=== PATIENT | male | born 1960 | race Caucasian/White ===

== ENCOUNTER 2016-05-10 13:37 | Inpatient (IN) | payer BC ==
[~2016-05-10] VITALS: Ht 170.2 cm; Wt 75.5 kg
[2016-05-10] MEDS ORDERED: IV NORMAL SALINE 1000ML BAG 1,000 ML IV SCH (14:28)
[2016-05-10 14:42] LABS: BASO # 0.1 x10^3/uL (0.0-0.2); BASO % 1 % (0-3); EOS % 3 % (0-3); HEMATOCRIT 43.4 % (39.0-53.0); HEMOGLOBIN 14.3 g/dL (13.0-17.5); LYMPH # 1.8 x10^3/uL (1.0-4.8); LYMPH % 24 % (24-48); MEAN CORPUSCULAR HEMOGLOBIN 27 pg (25-35); MEAN CORPUSCULAR HGB CONC 33 g/dL (31-37); MEAN CORPUSCULAR VOLUME 83 fL (79-100); MONO % 7 % (0-9); NEUT % 65 % (31-73); PLATELET COUNT 194 x10^3/uL (140-400); RED BLOOD COUNT 5.24 x10^6/uL (4.30-5.70); RED CELL DISTRIBUTION WIDTH 15.7 % (11.5-14.5); WHITE BLOOD COUNT 7.4 x10^3/uL (4.0-11.0)
[2016-05-10 14:51] LABS: INR 2.8 (0.8-1.1); PROTHROMBIN TIME PATIENT 28.1 SEC (11.7-14.0)
--- NOTE | 2016-05-10 15:00 | RAD ---
Exam: AP portable chest. History: Sent from cardiac rehabilitation for tachycardia. Comparison: None. Findings: The heart and mediastinal structures are within normal limits for size. Lungs are without infiltrate. No pneumothorax or pleural effusion is appreciated. Median sternotomy wires are present. Impression: 1. No acute cardiopulmonary process.
[2016-05-10 15:04] LABS: ANION GAP 9 (6-14); BLOOD UREA NITROGEN 10 mg/dL (8-26); CALCIUM 9.3 mg/dL (8.5-10.1); CARBON DIOXIDE 28 mmol/L (21-32); CHLORIDE 104 mmol/L (98-107); CREATININE 1.1 mg/dL (0.7-1.3); GFR 69.8; GLUCOSE 115 mg/dL (70-99); POTASSIUM 4.1 mmol/L (3.5-5.1); SODIUM 141 mmol/L (136-145)
[2016-05-10 15:12] LABS: CKMB INDEX 1.1 % (0-4); CKMB MASS 0.8 ng/mL (0.0-3.6)
--- NOTE | 2016-05-10 15:18 | EKG ---
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
[2016-05-10 15:24] LABS: ALBUMIN 3.9 g/dL (3.4-5.0); ALK PHOS 128 U/L (46-116); ALT (SGPT) 98 U/L (16-63); AST (SGOT) 40 U/L (15-37); DIRECT BILIRUBIN < 0.1 mg/dL (0.0-0.2); TOTAL BILIRUBIN 0.5 mg/dL (0.2-1.0); TOTAL PROTEIN 7.9 g/dL (6.4-8.2)
[2016-05-10] MEDS ORDERED: DILTIAZEM IV PUSH 25 MG/5 ML VIAL. IVP ONE (15:30)
--- NOTE | 2016-05-10 15:44 | EKG ---
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
[2016-05-10] MEDS: DILTIAZEM 125 MG in IV DEXTROSE 5% 100 ML IV PRN (15:56)
--- NOTE | 2016-05-10 15:59 | PHYS DOC ---
Past Medical History Past Medical History: GERD, Heart Disease, Hypertension Past Surgical History: Coronary Bypass Surgery Alcohol Use: None Drug Use: None Adult General Chief Complaint Chief Complaint: RAPID HEART RATE HPI HPI Patient is a 55 year old male sent from cardiac rehabilitation to the ED with the complaint of fast heart rate. Patient tells me that he had a cardiac bypass about 5 weeks ago done at [facility] by Dr. Garvey. His insurance sales producer is Dr. Aragon. After his bypass , about 2 weeks later, he went in and was found to be in A. fib. He was admitted to the hospital at [facility]. I did speak with someone in Dr. Aragon's office who added the following history. The patient was hospitalized at which time he did convert to sinus rhythm. He was changed from amlodipine to Cardizem and he was put on amiodarone 400 mg daily as well as Xarelto during that hospitalization. The patient started cardiac rehabilitation 2 days ago here at [place] because he lives in this area. He did fine. Today he walked into cardiac rehabilitation and when they were doing vitals they found his heart rate to be elevated and they did some rhythm strips and he had apparently a sinus tachycardia, was sent to the ED for evaluation. The patient denies chest pain, denies dyspnea. He said he did feel lightheaded with his previous episode of A. fib but has not felt lightheaded today. He denies any vomiting, denies blood in his stools. He said he has had "horrible diarrhea" since his bypass surgery. 2 days ago, Sunday night, he did have horrible diarrhea, he took a dose of antidiarrheal and yesterday he decreased his by mouth intake hoping to slow his diarrhea. He said he has had a C. difficile test done at the clinic which was negative. He is taking probiotics. 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 PCP none, he does have an appointment coming up with Dr. Lizama at [facility] but he does not currently have a PCP. Anesthesiologist Physician Dr. Aragon at [facility] Med list which came from the chart at Dr. Aragon's office: Cardizem 180 mg daily Toprol 50 mg daily Amiodarone 400 mg daily, started about 3 weeks ago due to new onset A. fib Lipitor Ramipril Aspirin 81 mg Colchicine 0.6 mg daily Xarelto 20 mg daily Review of Systems Review of Systems Constitutional: Denies fever or chills [] Eyes: Denies change in visual acuity, redness, or eye pain [] HENT: Denies nasal congestion or sore throat [] Respiratory: Denies cough or shortness of breath [] Cardiovascular: Denies chest pain or symptomatic arrhythmia GI: Denies abdominal pain, nausea, vomiting, positive as in history of present illness for diarrhea : Denies dysuria or hematuria [] Musculoskeletal: Denies back pain or joint pain [] Integument: Denies rash or skin lesions [] Neurologic: Denies headache, focal weakness or sensory changes [] Current Medications Current Medications Current Medications Medications (Trade) Dose Ordered Sig/Annabelle Start Time Stop Time Status Last Admin Dose Admin Diltiazem HCl 20 mg 20 mg 1X ONCE 05/10/16 15:30 05/10/16 15:31 DC 05/10/16 15:48 20 MG Diltiazem HCl/ Dextrose (Cardizem) 125 ml @ 0 mls/hr CONT PRN 05/10/16 15:45 05/10/16 15:56 5 MLS/HR Sodium Chloride (Iv Sodium Chloride 0.9% 1000ml Bag) 1,000 ml @ 1,000 mls/hr Q1H 05/10/16 14:28 05/10/16 15:27 DC 05/10/16 14:40 1,000 MLS/HR Allergies Allergies Allergies Coded Allergies Type Severity Reaction Last Updated Verified No Known Drug Allergies 05/10/16 No Physical Exam Physical Exam Constitutional: Well developed, well nourished, no acute distress, non-toxic appearance. Alert, mentating normally. HENT: Normocephalic, atraumatic, bilateral external ears normal, nose normal. [ ] Eyes: conjunctiva normal, no discharge. [] Neck: Normal range of motion, no stridor. [] Cardiovascular:Heart regular tachycardia without murmur Lungs & Thorax: Bilateral breath sounds clear to auscultation [] Abdomen: Bowel sounds normal, soft, no tenderness, no masses, no pulsatile masses. [] Skin: Warm, dry, no erythema, no rash. [] Extremities: No tenderness, no cyanosis, no clubbing, ROM intact, no edema. [] Neurologic: Alert and oriented X 3, normal motor function, normal sensory function, no focal deficits noted. [] Current Patient Data Vital Signs Vital Signs Date Time Temp Pulse Resp B/P Pulse Ox O2 Delivery O2 Flow Rate FiO2 05/10/16 15:48 133 138/94 05/10/16 13:56 98.3 22 98 Room Air 98.3 Lab Values Laboratory Tests Test 05/10/16 14:02 White Blood Count 7.4x10^3/uL (4.0-11.0) Red Blood Count 5.24x10^6/uL (4.30-5.70) Hemoglobin 14.3g/dL (13.0-17.5) Hematocrit 43.4% (39.0-53.0) Mean Corpuscular Volume 83fL (79-100) Mean Corpuscular Hemoglobin 27pg (25-35) Mean Corpuscular Hemoglobin Concent 33g/dL (31-37) Red Cell Distribution Width 15.7% (11.5-14.5) H Platelet Count 194x10^3/uL (140-400) Neutrophils (%) (Auto) 65% (31-73) Lymphocytes (%) (Auto) 24% (24-48) Monocytes (%) (Auto) 7% (0-9) Eosinophils (%) (Auto) 3% (0-3) Basophils (%) (Auto) 1% (0-3) Neutrophils # (Auto) 4.8x10^3uL (1.8-7.7) Lymphocytes # (Auto) 1.8x10^3/uL (1.0-4.8) Monocytes # (Auto) 0.5x10^3/uL (0.0-1.1) Eosinophils # (Auto) 0.2x10^3/uL (0.0-0.7) Basophils # (Auto) 0.1x10^3/uL (0.0-0.2) Prothrombin Time 28.1SEC (11.7-14.0) H Prothrombin Time INR 2.8 (0.8-1.1) H D-Dimer (Lisa) 0.52ug/mlFEU (0.00-0.50) H Sodium Level 141mmol/L (136-145) Potassium Level 4.1mmol/L (3.5-5.1) Chloride Level 104mmol/L (98-107) Carbon Dioxide Level 28mmol/L (21-32) Anion Gap 9 (6-14) Blood Urea Nitrogen 10mg/dL (8-26) Creatinine 1.1mg/dL (0.7-1.3) Estimated GFR (Cockcroft-Gault) 69.8 Glucose Level 115mg/dL (70-99) H Calcium Level 9.3mg/dL (8.5-10.1) Magnesium Level 2.0mg/dL (1.8-2.4) Total Bilirubin 0.5mg/dL (0.2-1.0) Direct Bilirubin < 0.1mg/dL (0.0-0.2) Aspartate Amino Transferase (AST) 40U/L (15-37) H Alanine Aminotransferase (ALT) 98U/L (16-63) H Alkaline Phosphatase 128U/L (46-116) H Creatine Kinase 70U/L (39-308) Creatine Kinase MB (Mass) 0.8ng/mL (0.0-3.6) Creatine Kinase MB Relative Index 1.1% (0-4) Troponin I Quantitative < 0.017ng/mL (0.000-0.055) BZ-Aqz-C-Type Natriuretic Peptide 513pg/mL (0-124) H Total Protein 7.9g/dL (6.4-8.2) Albumin 3.9g/dL (3.4-5.0) Thyroid Stimulating Hormone (TSH) 4.106uIU/mL (0.358-3.74) H Laboratory Tests 05/10/16 14:02 Laboratory Tests 05/10/16 14:02 EKG EKG Initial 12-lead EKG read by me. Likely atrial fibrillation. Only slightly irregularly irregular. Heart rate 119. There are no acute ST or T wave changes indicative of ischemia or infarction. No STEMI. 1345 Repeat 12-lead EKG read by me when the patient's heart rate was slightly higher. Atrial fibrillation. Heart rate 127. There are no acute ST or T waves indicative of ischemia or infarction. 1541 [] Radiology/Procedures Radiology/Procedures One view portable chest x-ray read by the radiologist. Heart size normal. Lung cole are clear. No acute cardiopulmonary process. [] Course & Med Decision Making Course & Med Decision Making Pertinent Labs and Imaging studies reviewed. (See chart for details) 55-year-old male with a recent history of CABG and recent history of development of A. fib, although he was back in sinus rhythm as of April 19. Presents with tachycardia. He has been having a lot of diarrhea so I decided first to hydrate him, he was given a liter of normal saline which did not improve his tachycardia at all. No lab finding or other clinical finding as the cause of the tachycardia. Second EKG was more indicative of atrial fibrillation. I started him on Cardizem infusion after a bolus. He'll need to be hospitalized for rapid A. fib. He is already anticoagulated, he has been taking Xarelto daily per his insurance sales producer Dr. Aragon. See history of present illness for patient's meds and discussion of recent medical history per Dr. Aragon's office. I discussed the case with Dr. Whitney, [facility]. She will admit the patient. I wrote bridge orders. Critical care time 40 minutes including bedside evaluation and reevaluation, interpretation of multiple EKGs, discussion of the case with the patient's insurance sales producer office, IV diltiazem management for rate control, documentation, writing orders, discussion with admitting physician. [] Dragon Disclaimer Dragon Disclaimer This electronic medical record was generated, in whole or in part, using a voice recognition dictation system. Departure Departure Impression: Primary Impression: Atrial fibrillation with rapid ventricular response Disposition: ADMITTED INPATIENT Admitting Physician: Serena Whitney Condition: STABLE Referrals: NO PCP (PCP) JOCELYNE MARTINEZ MD May 10, 2016 15:59
--- NOTE | 2016-05-10 17:21 | ACF ---
Admission Forms Criteria TELEMETRY CARE Telemetry Admission Guidelines (Place 'X' for any and all applicable criteria): Admission to telemetry [A] may be indicated for ANY ONE of the following(1)(2)(3 )(4)(5): [X]I. Cardiac disease, including ANY ONE of the following (9)(10)(11)(12)(13 ): [ ]a) Postacute CA [ ]b) Low-risk patients with ST-segment elevation CA who have undergone successful percutaneous coronary intervention [ ]c) Unstable angina [ ]d) Suspected CA (until it is ruled out) [ ]e) Post cardiac surgery (first 48 to 72 hours unless complications occur) [X]f) Acute arrhythmias (including significant tachycardia or bradycardia) [B] [ ]g) Firing of an implantable cardioverter defibrillator [C] [ ]h) Suspected pacemaker or implantable cardioverter defibrillator malfunction (10) [ ]i) New administration or adjustment of an antiarrhythmic drug [D ] [ ]j) Child admitted for acute congestive heart failure [ ]j) Long QT syndrome [ ]k) Advanced heart block (eg, second-degree Mobitz type II, third- degree heart block) [ ]l) Acute myocarditis or pericarditis [ ]m) Short-term (ambulatory or inpatient) monitoring after a cardiac procedure as indicated by ANY ONE of the following [E]: [ ]i) Electrophysiologic studies [ ]ii) Percutaneous coronary intervention with stent placement [ ]iii) Pacemaker placement with cardiac conduction defect [ ]iv) Implantable cardiac defibrillator placement [ ]II. Drug overdose or poisoning with substance that causes arrhythmias or QT prolongation (eg, phenothiazines, sympathomimetic agents, cyclic antidepressants, digitalis, antiarrhythmic drugs)(15) [ ]III. Short-term (ambulatory or inpatient) monitoring after therapeutic or diagnostic procedure requiring conscious sedation or anesthesia (eg, endoscopy, elective cardioversion) [ ]IV. Acute cerebrovascular even[F](18) [ ]V. Massive blood transfusion (eg, at least 10 units of packed red blood cells in 24 hours) [ ]. Variceal bleeding after endoscopy, sclerotherapy, or IV vasopressin [ ]VII. Uncorrected electrolyte abnormalities associated with an increased risk of dangerous arrhythmia [G]; examples include [ ]a) Hyperkalemia with attributable ECG changes [ ]b) Potassium greater than 6.5 mmol/L (mEq/L) in a patient without history of chronic renal disease [ ]c) Prolonged QT attributed to hypokalemia, hypomagnesemia, or hypocalcemia [ ]VIII.Unexplained syncope or other neurologic event suspected of being due to arrhythmia due to a finding that increases risk; examples include(19)(20)(21): [ ]a) High-risk ECG findings (eg, bifascicular block, bradycardia, abnormal QT interval, ventricular pre- excitation) [ ]b) History of previous syncope due to arrhythmia [ ]c) Abnormal ventricular function (eg, reduced ejection fraction ) [ ]d) Exertional or supine syncope [ ]e) Concerning syncope characteristics (eg, sudden loss of consciousness without prodrome) [ ]f) Family history of sudden [ ]g) Use of arrhythmogenic medication [ ]h) Suspected cardiac ischemia [ ]i) Known channelopathy (eg, long QT syndrome, Brugada syndrome, or catecholaminergic paroxysmal ventricular tachycardia) [ ]j) Known structural heart disease (eg, hypertrophic cardiomyopathy , severe valvular disease) [ ]k) Palpitations preceding syncope The original [employer] content created by [employer] has been revised. The portions of the content which have been revised are identified through the use of italic text or in bold, and [employer] has neither reviewed nor approved the modified material. All other unmodified content is copyright [employer]. Please see references footnoted in the original [employer] edition 2016 Admission Criteria Met?: Yes SALUD MONACO May 10, 2016 17:21
--- NOTE | 2016-05-10 17:24 | PDOC1 ---
History and Physical Date of Admission Date of Admission 05/10/16 Identification/Chief Complaint Chief Complaint rapid afib Problems: Source Source: Chart review, Patient History of Present Illness History of Present Illness 55yo M, who recently got CABG, afib, comes for rapid afib. He underwent CABG in [facility] 5 weeks ago, then 2 weeks ago, was found afib. He was given amiodarone , toprol, cardizem and was told converted to sinus. He didnot feel any tachycardia in the past 2-3 weeks. He comes to card rehab here today, was found HR 130s when checking vitals, then sent to ER. He felt mild dizzy, no palpitation. He missed one day of his all meds. He has been having diarrhea since CABG, was told cdiff neg. mild lower abd pain with cramps, no N/V, sob, cough, fever, chills. Past Medical History Cardiovascular: HTN, SD Past Surgical History Past Surgical History: CABG Family History Family History: Coronary Artery Disease Social History Smoke: No ALCOHOL: none Drugs: None Current Problem List Problem List Problems Medical Problems: (1) Atrial fibrillation with rapid ventricular response Status: Acute Current Medications Current Medications Current Medications Medications (Trade) Dose Ordered Sig/Annabelle Start Time Stop Time Status Last Admin Dose Admin Diltiazem HCl 20 mg 20 mg 1X ONCE 05/10/16 15:30 05/10/16 15:31 DC 05/10/16 15:48 20 MG Diltiazem HCl/ Dextrose (Cardizem) 125 ml @ 0 mls/hr CONT PRN 05/10/16 15:45 05/10/16 15:56 5 MLS/HR Sodium Chloride (Iv Sodium Chloride 0.9% 1000ml Bag) 1,000 ml @ 1,000 mls/hr Q1H 05/10/16 14:28 05/10/16 15:27 DC 05/10/16 14:40 1,000 MLS/HR Allergies Allergies Allergies Coded Allergies Type Severity Reaction Last Updated Verified No Known Drug Allergies 05/10/16 No ROS Review of System CONSTITUTIONAL: No fever or chills EYES: No recent changes SKIN: No rash or itching CARDIOVASCULAR: No chest pain, syncope, palpitations, or edema RESPIRATORY: No SOB or cough GASTROINTESTINAL: No nausea, vomiting or abdominal pain NEUROLOGICAL: No headaches or weakness ENDOCRINE: No cold or heat intolerance GENITOURINARY: No urgency or frequency of urination MUSCULOSKELETAL: No back pain or joint pain LYMPHATICS: No enlarged lymph nodes PSYCHIATRIC: No anxiety or depression Physical Exam Physical Exam GEN.: No apparent distress. Alert and oriented. HEENT: Head is normocephalic, atraumatic NECK: Supple. LUNGS: Clear to auscultation. HEART: irregular, tachy. Peripheral pulses intact ABDOMEN: Soft, nontender. Positive bowel sounds. EXTREMITIES: Without any cyanosis. NEUROLOGIC: Normal speech, normal tone PSYCHIATRIC: Normal affect, normal mood. SKIN: clean CABG scars Vitals Vitals Vital Signs Date Time Temp Pulse Resp B/P Pulse Ox O2 Delivery O2 Flow Rate FiO2 05/10/16 16:30 107 21 103/79 95 Room Air 05/10/16 13:56 98.3 98.3 Labs Labs Laboratory Tests Test 05/10/16 14:02 White Blood Count 7.4x10^3/uL (4.0-11.0) Red Blood Count 5.24x10^6/uL (4.30-5.70) Hemoglobin 14.3g/dL (13.0-17.5) Hematocrit 43.4% (39.0-53.0) Mean Corpuscular Volume 83fL (79-100) Mean Corpuscular Hemoglobin 27pg (25-35) Mean Corpuscular Hemoglobin Concent 33g/dL (31-37) Red Cell Distribution Width 15.7% (11.5-14.5) Platelet Count 194x10^3/uL (140-400) Neutrophils (%) (Auto) 65% (31-73) Lymphocytes (%) (Auto) 24% (24-48) Monocytes (%) (Auto) 7% (0-9) Eosinophils (%) (Auto) 3% (0-3) Basophils (%) (Auto) 1% (0-3) Neutrophils # (Auto) 4.8x10^3uL (1.8-7.7) Lymphocytes # (Auto) 1.8x10^3/uL (1.0-4.8) Monocytes # (Auto) 0.5x10^3/uL (0.0-1.1) Eosinophils # (Auto) 0.2x10^3/uL (0.0-0.7) Basophils # (Auto) 0.1x10^3/uL (0.0-0.2) Prothrombin Time 28.1SEC (11.7-14.0) Prothromb Time International Ratio 2.8 (0.8-1.1) D-Dimer (Lisa) 0.52ug/mlFEU (0.00-0.50) Sodium Level 141mmol/L (136-145) Potassium Level 4.1mmol/L (3.5-5.1) Chloride Level 104mmol/L (98-107) Carbon Dioxide Level 28mmol/L (21-32) Anion Gap 9 (6-14) Blood Urea Nitrogen 10mg/dL (8-26) Creatinine 1.1mg/dL (0.7-1.3) Estimated GFR (Cockcroft-Gault) 69.8 Glucose Level 115mg/dL (70-99) Calcium Level 9.3mg/dL (8.5-10.1) Magnesium Level 2.0mg/dL (1.8-2.4) Total Bilirubin 0.5mg/dL (0.2-1.0) Direct Bilirubin < 0.1mg/dL (0.0-0.2) Aspartate Amino Transf (AST/SGOT) 40U/L (15-37) Alanine Aminotransferase (ALT/SGPT) 98U/L (16-63) Alkaline Phosphatase 128U/L (46-116) Creatine Kinase 70U/L (39-308) Creatine Kinase MB (Mass) 0.8ng/mL (0.0-3.6) Creatine Kinase MB Relative Index 1.1% (0-4) Troponin I Quantitative < 0.017ng/mL (0.000-0.055) AW-Pha-R-Type Natriuretic Peptide 513pg/mL (0-124) Total Protein 7.9g/dL (6.4-8.2) Albumin 3.9g/dL (3.4-5.0) Thyroid Stimulating Hormone (TSH) 4.106uIU/mL (0.358-3.74) Laboratory Tests Test 05/10/16 14:02 White Blood Count 7.4x10^3/uL (4.0-11.0) Red Blood Count 5.24x10^6/uL (4.30-5.70) Hemoglobin 14.3g/dL (13.0-17.5) Hematocrit 43.4% (39.0-53.0) Mean Corpuscular Volume 83fL (79-100) Mean Corpuscular Hemoglobin 27pg (25-35) Mean Corpuscular Hemoglobin Concent 33g/dL (31-37) Red Cell Distribution Width 15.7% (11.5-14.5) Platelet Count 194x10^3/uL (140-400) Neutrophils (%) (Auto) 65% (31-73) Lymphocytes (%) (Auto) 24% (24-48) Monocytes (%) (Auto) 7% (0-9) Eosinophils (%) (Auto) 3% (0-3) Basophils (%) (Auto) 1% (0-3) Neutrophils # (Auto) 4.8x10^3uL (1.8-7.7) Lymphocytes # (Auto) 1.8x10^3/uL (1.0-4.8) Monocytes # (Auto) 0.5x10^3/uL (0.0-1.1) Eosinophils # (Auto) 0.2x10^3/uL (0.0-0.7) Basophils # (Auto) 0.1x10^3/uL (0.0-0.2) Prothrombin Time 28.1SEC (11.7-14.0) Prothromb Time International Ratio 2.8 (0.8-1.1) D-Dimer (Lisa) 0.52ug/mlFEU (0.00-0.50) Sodium Level 141mmol/L (136-145) Potassium Level 4.1mmol/L (3.5-5.1) Chloride Level 104mmol/L (98-107) Carbon Dioxide Level 28mmol/L (21-32) Anion Gap 9 (6-14) Blood Urea Nitrogen 10mg/dL (8-26) Creatinine 1.1mg/dL (0.7-1.3) Estimated GFR (Cockcroft-Gault) 69.8 Glucose Level 115mg/dL (70-99) Calcium Level 9.3mg/dL (8.5-10.1) Magnesium Level 2.0mg/dL (1.8-2.4) Total Bilirubin 0.5mg/dL (0.2-1.0) Direct Bilirubin < 0.1mg/dL (0.0-0.2) Aspartate Amino Transf (AST/SGOT) 40U/L (15-37) Alanine Aminotransferase (ALT/SGPT) 98U/L (16-63) Alkaline Phosphatase 128U/L (46-116) Creatine Kinase 70U/L (39-308) Creatine Kinase MB (Mass) 0.8ng/mL (0.0-3.6) Creatine Kinase MB Relative Index 1.1% (0-4) Troponin I Quantitative < 0.017ng/mL (0.000-0.055) PX-Otk-P-Type Natriuretic Peptide 513pg/mL (0-124) Total Protein 7.9g/dL (6.4-8.2) Albumin 3.9g/dL (3.4-5.0) Thyroid Stimulating Hormone (TSH) 4.106uIU/mL (0.358-3.74) VTE Prophylaxis Ordered VTE Prophylaxis Devices: Yes VTE Pharmacological Prophylaxi: No Assessment/Plan Assessment/Plan 1. rapid afib 2. recent CAD with CABG 3. HTN 4. CHRONIC diarrhea 5. GERD plan: 1. high TSH, check t4 2. card, gi consult 3. on cardizem drip for now need home meds 4. check stool cx, cdiff on xarelto,. MEHRAN JI MD May 10, 2016 17:24
[2016-05-10] MEDS ORDERED: ACETAMINOPHEN 325 MG TABLET. PO PRN (17:30)
[2016-05-10] MEDS ORDERED: ONDANSETRON PF 4 MG/2 ML VIAL. IV PRN (17:30)
[2016-05-10] MEDS: RIVAROXABAN 10 MG TABLET. PO SCH (18:00)
[2016-05-10 19:07] VITALS: BP 118/77
[2016-05-10 19:49] VITALS: BP 98/65
[2016-05-10 20:00] VITALS: BP 98/65
[2016-05-10] MEDS ORDERED: ATORVASTATIN CALCIUM 40 MG TABLET. PO ONE (22:15)
[2016-05-10] MEDS ORDERED: COLCHICINE 0.6 MG TABLET PO ONE (22:15)
[2016-05-10] MEDS ORDERED: ZOLPIDEM 5 MG TABLET. PO PRN (22:15)
[2016-05-10 22:45] VITALS: BP 95/56
[2016-05-11] VITALS (9 sets, daily range): BP systolic 85–119; BP diastolic 45–65
[2016-05-11] MEDS: DILTIAZEM 125 MG in IV DEXTROSE 5% 100 ML IV PRN ×2 (00:01→00:03)
[2016-05-11 04:38] LABS: BASO # 0.1 x10^3/uL (0.0-0.2); BASO % 1 % (0-3); EOS % 3 % (0-3); HEMATOCRIT 38.2 % (39.0-53.0); HEMOGLOBIN 12.6 g/dL (13.0-17.5); LYMPH # 2.4 x10^3/uL (1.0-4.8); LYMPH % 35 % (24-48); MEAN CORPUSCULAR HEMOGLOBIN 27 pg (25-35); MEAN CORPUSCULAR HGB CONC 33 g/dL (31-37); MEAN CORPUSCULAR VOLUME 83 fL (79-100); MONO % 8 % (0-9); NEUT % 53 % (31-73); PLATELET COUNT 173 x10^3/uL (140-400); RED CELL DISTRIBUTION WIDTH 15.3 % (11.5-14.5); WHITE BLOOD COUNT 6.9 x10^3/uL (4.0-11.0)
[2016-05-11 04:52] LABS: CALCIUM 8.7 mg/dL (8.5-10.1); GFR 77.9
[2016-05-11] MEDS ORDERED: RAMI10CA28 PO (06:59)
[2016-05-11] MEDS ORDERED: COLC0.6T42 PO (06:59)
[2016-05-11] MEDS ORDERED: MELA1TAB9 PO (06:59)
[2016-05-11] MEDS ORDERED: ATOR40TA59 PO (06:59)
[2016-05-11] MEDS ORDERED: RIVA20TA2 PO (06:59)
[2016-05-11] MEDS ORDERED: ASPI81TA2 PO (06:59)
[2016-05-11] MEDS ORDERED: ASPIRIN CHEWABLE 81 MG TABLET. PO SCH (08:00)
--- NOTE | 2016-05-11 08:51 | PDOC2 ---
GI CONSULT Reason For Consult: Diarrhea HPI: HPI: 55 y/o male admitted w/ A Fib RVR. Recently had CABG (6 weeks ago), diagnosed w / A Fib shortly after. Since surgery he has also had diarrhea, hence GI consult. Stool consistency and frequency varies. For example, on Sunday night , he had hourly yellowish watery stools w/ some abdominal cramping and gurgling. After taking 1 Imodium, he had no stools Sunday. On Sunday, he had one formed/soft yellowish stool and has had no stools since admission. He has been taking probiotics and reports C Diff was negative last Sunday at his PCP's office. Prior to this, no GI issues. Denies reflux/heartburn, vomiting, hematochezia/melena, or change in appetite. Estimates 20 lb weight loss since surgery. Occasional nausea w/ abdominal cramping. No previous EGD or colonoscopy. Note was started on colchicine after surgery. PMH: PMH: A Fib, IN, HTN, HLD, CABG, gout FH: Family History: No pertinent hx (denies GI cancers), CAD Social History: Smoke: No ALCOHOL: none Drugs: None ROS: GEN: Denies fevers, chills, sweats HEENT: Denies blurred vision, sore throat CV: Denies chest pain RESP: Denies shortness of air, cough GI: Per HPI : Denies hematuria, dysuria ENDO: +weight loss NEURO: Denies confusion, dizziness MSK: Denies weakness, joint pain/swelling SKIN: Denies jaundice, pruritus VItals: Vitals: Vital Signs Date Time Temp Pulse Resp B/P Pulse Ox O2 Delivery O2 Flow Rate FiO2 05/11/16 07:44 98.5 54 14 119/65 97 Room Air 98.5 Labs: Labs: Laboratory Tests Test 05/10/16 14:02 05/10/16 21:45 05/11/16 03:35 White Blood Count 7.4x10^3/uL (4.0-11.0) 6.9x10^3/uL (4.0-11.0) Red Blood Count 5.24x10^6/uL (4.30-5.70) 4.60x10^6/uL (4.30-5.70) Hemoglobin 14.3g/dL (13.0-17.5) 12.6g/dL (13.0-17.5) Hematocrit 43.4% (39.0-53.0) 38.2% (39.0-53.0) Mean Corpuscular Volume 83fL (79-100) 83fL (79-100) Mean Corpuscular Hemoglobin 27pg (25-35) 27pg (25-35) Mean Corpuscular Hemoglobin Concent 33g/dL (31-37) 33g/dL (31-37) Red Cell Distribution Width 15.7% (11.5-14.5) 15.3% (11.5-14.5) Platelet Count 194x10^3/uL (140-400) 173x10^3/uL (140-400) Neutrophils (%) (Auto) 65% (31-73) 53% (31-73) Lymphocytes (%) (Auto) 24% (24-48) 35% (24-48) Monocytes (%) (Auto) 7% (0-9) 8% (0-9) Eosinophils (%) (Auto) 3% (0-3) 3% (0-3) Basophils (%) (Auto) 1% (0-3) 1% (0-3) Neutrophils # (Auto) 4.8x10^3uL (1.8-7.7) 3.6x10^3uL (1.8-7.7) Lymphocytes # (Auto) 1.8x10^3/uL (1.0-4.8) 2.4x10^3/uL (1.0-4.8) Monocytes # (Auto) 0.5x10^3/uL (0.0-1.1) 0.6x10^3/uL (0.0-1.1) Eosinophils # (Auto) 0.2x10^3/uL (0.0-0.7) 0.2x10^3/uL (0.0-0.7) Basophils # (Auto) 0.1x10^3/uL (0.0-0.2) 0.1x10^3/uL (0.0-0.2) Prothrombin Time 28.1SEC (11.7-14.0) Prothromb Time International Ratio 2.8 (0.8-1.1) D-Dimer (Lisa) 0.52ug/mlFEU (0.00-0.50) Sodium Level 141mmol/L (136-145) 143mmol/L (136-145) Potassium Level 4.1mmol/L (3.5-5.1) 4.0mmol/L (3.5-5.1) Chloride Level 104mmol/L (98-107) 108mmol/L (98-107) Carbon Dioxide Level 28mmol/L (21-32) 26mmol/L (21-32) Anion Gap 9 (6-14) 9 (6-14) Blood Urea Nitrogen 10mg/dL (8-26) 9mg/dL (8-26) Creatinine 1.1mg/dL (0.7-1.3) 1.0mg/dL (0.7-1.3) Estimated GFR (Cockcroft-Gault) 69.8 77.9 Glucose Level 115mg/dL (70-99) 83mg/dL (70-99) Calcium Level 9.3mg/dL (8.5-10.1) 8.7mg/dL (8.5-10.1) Magnesium Level 2.0mg/dL (1.8-2.4) Total Bilirubin 0.5mg/dL (0.2-1.0) Direct Bilirubin < 0.1mg/dL (0.0-0.2) Aspartate Amino Transf (AST/SGOT) 40U/L (15-37) Alanine Aminotransferase (ALT/SGPT) 98U/L (16-63) Alkaline Phosphatase 128U/L (46-116) Creatine Kinase 70U/L (39-308) Creatine Kinase MB (Mass) 0.8ng/mL (0.0-3.6) Creatine Kinase MB Relative Index 1.1% (0-4) Troponin I Quantitative < 0.017ng/mL (0.000-0.055) < 0.017ng/mL (0.000-0.055) IO-Yuk-O-Type Natriuretic Peptide 513pg/mL (0-124) Total Protein 7.9g/dL (6.4-8.2) Albumin 3.9g/dL (3.4-5.0) Thyroid Stimulating Hormone (TSH) 4.106uIU/mL (0.358-3.74) Free Thyroxine 1.36ng/dL (0.76-1.46) Allergies: Coded Allergies: No Known Drug Allergies (Unverified , 05/10/16) Medications: Current Medications Medications (Trade) Dose Ordered Sig/Annabelle Route PRN Reason Start Time Stop Time Status Last Admin Dose Admin Sodium Chloride (Iv Sodium Chloride 0.9% 1000ml Bag) 1,000 ml @ 1,000 mls/hr Q1H IV 05/10/16 14:28 05/10/16 15:27 DC 05/10/16 14:40 Diltiazem HCl 20 mg 20 mg 1X ONCE IVP 05/10/16 15:30 05/10/16 15:31 DC 05/10/16 15:48 Diltiazem HCl/ Dextrose (Cardizem) 125 ml @ 0 mls/hr CONT PRN IV SEE I/O RECORD 05/10/16 15:45 05/11/16 00:03 Colchicine (Colcrys) 0.6 mg 1X ONCE PO 05/10/16 22:15 05/10/16 22:16 DC 05/10/16 22:18 Atorvastatin Calcium (Lipitor) 40 mg 1X ONCE PO 05/10/16 22:15 05/10/16 22:16 DC 05/10/16 22:18 Imaging: Imaging: CXR Impression: 1. No acute cardiopulmonary process. PE: GEN: NAD HEENT: Atraumatic, PERRL LUNGS: CTAB HEART: RRR ABD: NABS, S/ND/NT EXTREMITY: No edema SKIN: healing surgical incision on chest NEURO/PSYCH: A & O 3 A/P: A/P: Diarrhea -onset after CABG ~6 weeks ago, also started colchicine at that time -reports C Diff neg as outpt -symptoms wax and wane, can have frequent watery stools w/ abd cramps and nausea -improved w/ Imodium, also on probiotics A Fib RVR, s/p CABG 6 weeks ago -on Xarelto, ASA, Cardizem CRC screen -no previous colonoscopy -- ?diarrhea related to colchicine Observe off of this (has been stopped this a.m.) Await stool studies. Screening colonoscopy eventually as outpatient after recovery from surgery, etc. GABRIEL PENA May 11, 2016 08:51
[2016-05-11] MEDS ORDERED: LISINOPRIL 20 MG TABLET PO SCH (09:00)
[2016-05-11] MEDS ORDERED: COLCHICINE 0.6 MG TABLET PO SCH (09:00)
--- NOTE | 2016-05-11 09:30 | PDOC2 ---
CARDIAC CONSULT DATE OF CONSULT Date of Consult DATE: 05/11/16 TIME: 09:24 REASON FOR CONSULT Reason for Consult: AFIB RVR REFERRING PHYSICIAN Referring Physician: Jose SOURCE Source: Chart review, Patient HISTORY OF PRESENT ILLNESS HISTORY OF PRESENT ILLNESS This is a pleasant 55 yo male admitted for complains of fast heart rate noted significantly during cardiac rehab. Pt is S/P CABG from 5 weeks ago. From cardiac rehab, he was recommended to be further evaluated in ED and was noted with AFIB RVR. He is CP free and no SOA. 2 weeks after his CABG he was readmitted back at [facility] for AFIB, in which he was placed on amiodarone, xarelto, changed his norvasc to cardizem. He did convert to SR at that time and no DC cardioversion. He was already on toprol at that time. After which he has been having bouts of intermittent diarrhea which continued on and actually had several episodes last Sunday and some on Sunday. There was period that he was not able to take some of his cardiac meds such as in Sunday due to his diarrhea and his hydration has been off as well. Denies any chest pain SOA. He is due to be seen by Dr. Aragon his food and nutrition services supervisor today. He was then placed on cardizem drip overnight and currently has converted back to SR. He is doing well currently and suspicion that he may be having diarrhea due to colchicine. He was also checked for C-diff and he was negative. Denies any fever or chills as well. PAST MEDICAL HISTORY Cardiovascular: AFIB, CAD, HTN, Hyperlipidemia Pulmonary: No pertinent hx CENTRAL NERVOUS SYSTEM: Other (No pertinent history) GI: GERD, Other (diarrhea) Heme/Onc: No pertinent hx Hepatobiliary: No pertinent hx Psych: No pertinent hx Musculoskeletal: Osteoarthritis Rheumatologic: Other (?hyperuricemia) Infectious disease: No pertinent hx ENT: No pertinent hx Renal/: Benign prostatic enlarg. Endocrine: No pertinent hx Dermatology: No pertinent hx PAST SURGICAL HISTORY Past Surgical History: CABG (x6 5 weeks ago) FAMILY HISTORY Family History: Coronary Artery Disease (3 brothers with premature CAD) SOCIAL HISTORY Smoke: No ALCOHOL: none Drugs: None Lives: with Family CURRENT MEDICATIONS CURRENT MEDICATIONS Current Medications Medications (Trade) Dose Ordered Sig/Annabelle Route PRN Reason Start Time Stop Time Status Last Admin Dose Admin Sodium Chloride (Iv Sodium Chloride 0.9% 1000ml Bag) 1,000 ml @ 1,000 mls/hr Q1H IV 05/10/16 14:28 05/10/16 15:27 DC 05/10/16 14:40 Diltiazem HCl 20 mg 20 mg 1X ONCE IVP 05/10/16 15:30 05/10/16 15:31 DC 05/10/16 15:48 Diltiazem HCl/ Dextrose (Cardizem) 125 ml @ 0 mls/hr CONT PRN IV SEE I/O RECORD 05/10/16 15:45 05/11/16 00:03 Aspirin (Children'S Aspirin) 81 mg DAILYWBKFT PO 05/11/16 08:00 05/11/16 09:10 Colchicine (Colcrys) 0.6 mg 1X ONCE PO 05/10/16 22:15 05/10/16 22:16 DC 05/10/16 22:18 Atorvastatin Calcium (Lipitor) 40 mg 1X ONCE PO 05/10/16 22:15 05/10/16 22:16 DC 05/10/16 22:18 Lisinopril (Prinivil) 20 mg DAILY PO 05/11/16 09:00 05/11/16 09:10 ALLERGIES ALLERGIES: Coded Allergies: No Known Drug Allergies (Unverified , 05/10/16) ROS Review of System 14 point ROS evaluated with pertinent positives noted per HPI PHYSICAL EXAM General: Alert, Oriented X3, Cooperative, No acute distress HEENT: Atraumatic, Mucous membr. moist/pink Lungs: Clear to auscultation, Normal air movement Heart: Regular rate (SR), Normal S1, Normal S2, Other (2/6 systolic murmur to LLS border) Abdomen: Soft, No tenderness, Other (hyperactive bowel sounds to all quads) Extremities: No cyanosis, No edema Skin: No breakdown, No significant lesion, Other (mid chest incision well approxiamted) Neuro: Normal speech, Sensation intact Psych/Mental Status: Mental status NL, Mood NL MUSCULOSKELETAL: Osteoarthritic changes both hands VITALS VITALS Vital Signs Date Time Temp Pulse Resp B/P Pulse Ox O2 Delivery O2 Flow Rate FiO2 05/11/16 09:10 65 138/79 05/11/16 07:44 98.5 14 97 Room Air 98.5 LABS Lab: Laboratory Tests Test 4/5/17 14:02 05/10/16 21:45 05/11/16 03:35 White Blood Count 7.4x10^3/uL (4.0-11.0) 6.9x10^3/uL (4.0-11.0) Red Blood Count 5.24x10^6/uL (4.30-5.70) 4.60x10^6/uL (4.30-5.70) Hemoglobin 14.3g/dL (13.0-17.5) 12.6g/dL (13.0-17.5) Hematocrit 43.4% (39.0-53.0) 38.2% (39.0-53.0) Mean Corpuscular Volume 83fL (79-100) 83fL (79-100) Mean Corpuscular Hemoglobin 27pg (25-35) 27pg (25-35) Mean Corpuscular Hemoglobin Concent 33g/dL (31-37) 33g/dL (31-37) Red Cell Distribution Width 15.7% (11.5-14.5) 15.3% (11.5-14.5) Platelet Count 194x10^3/uL (140-400) 173x10^3/uL (140-400) Neutrophils (%) (Auto) 65% (31-73) 53% (31-73) Lymphocytes (%) (Auto) 24% (24-48) 35% (24-48) Monocytes (%) (Auto) 7% (0-9) 8% (0-9) Eosinophils (%) (Auto) 3% (0-3) 3% (0-3) Basophils (%) (Auto) 1% (0-3) 1% (0-3) Neutrophils # (Auto) 4.8x10^3uL (1.8-7.7) 3.6x10^3uL (1.8-7.7) Lymphocytes # (Auto) 1.8x10^3/uL (1.0-4.8) 2.4x10^3/uL (1.0-4.8) Monocytes # (Auto) 0.5x10^3/uL (0.0-1.1) 0.6x10^3/uL (0.0-1.1) Eosinophils # (Auto) 0.2x10^3/uL (0.0-0.7) 0.2x10^3/uL (0.0-0.7) Basophils # (Auto) 0.1x10^3/uL (0.0-0.2) 0.1x10^3/uL (0.0-0.2) Prothrombin Time 28.1SEC (11.7-14.0) Prothromb Time International Ratio 2.8 (0.8-1.1) D-Dimer (Lisa) 0.52ug/mlFEU (0.00-0.50) Sodium Level 141mmol/L (136-145) 143mmol/L (136-145) Potassium Level 4.1mmol/L (3.5-5.1) 4.0mmol/L (3.5-5.1) Chloride Level 104mmol/L (98-107) 108mmol/L (98-107) Carbon Dioxide Level 28mmol/L (21-32) 26mmol/L (21-32) Anion Gap 9 (6-14) 9 (6-14) Blood Urea Nitrogen 10mg/dL (8-26) 9mg/dL (8-26) Creatinine 1.1mg/dL (0.7-1.3) 1.0mg/dL (0.7-1.3) Estimated GFR (Cockcroft-Gault) 69.8 77.9 Glucose Level 115mg/dL (70-99) 83mg/dL (70-99) Calcium Level 9.3mg/dL (8.5-10.1) 8.7mg/dL (8.5-10.1) Magnesium Level 2.0mg/dL (1.8-2.4) Total Bilirubin 0.5mg/dL (0.2-1.0) Direct Bilirubin < 0.1mg/dL (0.0-0.2) Aspartate Amino Transf (AST/SGOT) 40U/L (15-37) Alanine Aminotransferase (ALT/SGPT) 98U/L (16-63) Alkaline Phosphatase 128U/L (46-116) Creatine Kinase 70U/L (39-308) Creatine Kinase MB (Mass) 0.8ng/mL (0.0-3.6) Creatine Kinase MB Relative Index 1.1% (0-4) Troponin I Quantitative < 0.017ng/mL (0.000-0.055) < 0.017ng/mL (0.000-0.055) AX-Qqh-M-Type Natriuretic Peptide 513pg/mL (0-124) Total Protein 7.9g/dL (6.4-8.2) Albumin 3.9g/dL (3.4-5.0) Thyroid Stimulating Hormone (TSH) 4.106uIU/mL (0.358-3.74) Free Thyroxine 1.36ng/dL (0.76-1.46) ASSESSMENT/PLAN ASSESSMENT/PLAN 1. AFIB RVR: known for paroxysmal episode. Converted to SR overnight post IV cardizem. Likely induced by F & E imbalance associated with diarrhea with missed dose of cardiac meds. 2. Continued intermittent diarrhea: suspect colchicine per GI. 3. S/P CABGx6: 5 weeks ago [facility] by Dr. Nicole. Seen by Dr. Aragon his food and nutrition services supervisor. Stable. 4. TSH borderline high: TSH 4.1, suspect amiodarone contributing. 5. HTN: controlled 6. HLP Recommendations 1. TTE today 5 weeks post CABG 2. DC cardizem and resume amiodarone, cardizem, toprol and xarelto. 3. If no further ectopies this afternoon and no further changes in symptomatology then may DC per cardiac standpoint. 4. Reestablish follow up with Dr. Aragon next week. 5. Continue with secondary prevention 6. Close monitoring of TSH while on amiodarone. 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
[2016-05-11] MEDS ORDERED: AMIO200T2 PO (09:57)
[2016-05-11] MEDS ORDERED: METO50TA10 PO (09:57)
[2016-05-11] MEDS ORDERED: DILT180C2 PO (09:57)
[2016-05-11] MEDS ORDERED: DILTIAZEM HCL 180 MG CAP.ER.24H PO SCH (10:30)
--- NOTE | 2016-05-11 11:45 | PDOC ---
PROGRESS NOTES Chief Complaint Chief Complaint 1. rapid afib - started since CABG 5 weeks ago at [facility], cardioverted by chemical means 2. recent CAD with CABG 3. HTN 4. CHRONIC diarrhea since CABG/colcrys 5. GERD History of Present Illness History of Present Illness On low dose cardizem (2,5) HR 60s NO sxs Eager to go home U did discuss about colcrys causing diarrhea and recommended for him to stop and see if diarrhea abates CLaims was placed on it post CABG "to prevent pericarditis??" No hx CKD, gout NO more diarrhea, c diff ordered but diarrhea has abated Recent c diff as OP was neg PLAN: Dc colcrys Follow cards recs MIght go home today - no objections Vitals Vitals Vital Signs Date Time Temp Pulse Resp B/P Pulse Ox O2 Delivery O2 Flow Rate FiO2 05/11/16 10:32 65 107/59 05/11/16 08:00 Room Air 05/11/16 07:44 98.5 14 97 98.5 Labs LABS Laboratory Tests Test 05/10/16 14:02 05/10/16 21:45 05/11/16 03:35 White Blood Count 7.4x10^3/uL (4.0-11.0) 6.9x10^3/uL (4.0-11.0) Red Blood Count 5.24x10^6/uL (4.30-5.70) 4.60x10^6/uL (4.30-5.70) Hemoglobin 14.3g/dL (13.0-17.5) 12.6g/dL (13.0-17.5) Hematocrit 43.4% (39.0-53.0) 38.2% (39.0-53.0) Mean Corpuscular Volume 83fL (79-100) 83fL (79-100) Mean Corpuscular Hemoglobin 27pg (25-35) 27pg (25-35) Mean Corpuscular Hemoglobin Concent 33g/dL (31-37) 33g/dL (31-37) Red Cell Distribution Width 15.7% (11.5-14.5) 15.3% (11.5-14.5) Platelet Count 194x10^3/uL (140-400) 173x10^3/uL (140-400) Neutrophils (%) (Auto) 65% (31-73) 53% (31-73) Lymphocytes (%) (Auto) 24% (24-48) 35% (24-48) Monocytes (%) (Auto) 7% (0-9) 8% (0-9) Eosinophils (%) (Auto) 3% (0-3) 3% (0-3) Basophils (%) (Auto) 1% (0-3) 1% (0-3) Neutrophils # (Auto) 4.8x10^3uL (1.8-7.7) 3.6x10^3uL (1.8-7.7) Lymphocytes # (Auto) 1.8x10^3/uL (1.0-4.8) 2.4x10^3/uL (1.0-4.8) Monocytes # (Auto) 0.5x10^3/uL (0.0-1.1) 0.6x10^3/uL (0.0-1.1) Eosinophils # (Auto) 0.2x10^3/uL (0.0-0.7) 0.2x10^3/uL (0.0-0.7) Basophils # (Auto) 0.1x10^3/uL (0.0-0.2) 0.1x10^3/uL (0.0-0.2) Prothrombin Time 28.1SEC (11.7-14.0) Prothromb Time International Ratio 2.8 (0.8-1.1) D-Dimer (Lisa) 0.52ug/mlFEU (0.00-0.50) Sodium Level 141mmol/L (136-145) 143mmol/L (136-145) Potassium Level 4.1mmol/L (3.5-5.1) 4.0mmol/L (3.5-5.1) Chloride Level 104mmol/L (98-107) 108mmol/L (98-107) Carbon Dioxide Level 28mmol/L (21-32) 26mmol/L (21-32) Anion Gap 9 (6-14) 9 (6-14) Blood Urea Nitrogen 10mg/dL (8-26) 9mg/dL (8-26) Creatinine 1.1mg/dL (0.7-1.3) 1.0mg/dL (0.7-1.3) Estimated GFR (Cockcroft-Gault) 69.8 77.9 Glucose Level 115mg/dL (70-99) 83mg/dL (70-99) Calcium Level 9.3mg/dL (8.5-10.1) 8.7mg/dL (8.5-10.1) Magnesium Level 2.0mg/dL (1.8-2.4) 2.0mg/dL (1.8-2.4) Total Bilirubin 0.5mg/dL (0.2-1.0) Direct Bilirubin < 0.1mg/dL (0.0-0.2) Aspartate Amino Transf (AST/SGOT) 40U/L (15-37) Alanine Aminotransferase (ALT/SGPT) 98U/L (16-63) Alkaline Phosphatase 128U/L (46-116) Creatine Kinase 70U/L (39-308) Creatine Kinase MB (Mass) 0.8ng/mL (0.0-3.6) Creatine Kinase MB Relative Index 1.1% (0-4) Troponin I Quantitative < 0.017ng/mL (0.000-0.055) < 0.017ng/mL (0.000-0.055) VK-Juz-W-Type Natriuretic Peptide 513pg/mL (0-124) Total Protein 7.9g/dL (6.4-8.2) Albumin 3.9g/dL (3.4-5.0) Thyroid Stimulating Hormone (TSH) 4.106uIU/mL (0.358-3.74) Free Thyroxine 1.36ng/dL (0.76-1.46) Review of Systems Review of Systems no n/d/emesis, no CP, SOA Assessment and Plan Assessmemt and Plan Problems Medical Problems: (1) Atrial fibrillation with rapid ventricular response Status: Acute Problems: Comment Review of Relevant I have reviewed the following items jud (where applicable) has been applied. Labs Laboratory Tests Test 05/10/16 14:02 05/10/16 21:45 05/11/16 03:35 White Blood Count 7.4x10^3/uL (4.0-11.0) 6.9x10^3/uL (4.0-11.0) Red Blood Count 5.24x10^6/uL (4.30-5.70) 4.60x10^6/uL (4.30-5.70) Hemoglobin 14.3g/dL (13.0-17.5) 12.6g/dL (13.0-17.5) Hematocrit 43.4% (39.0-53.0) 38.2% (39.0-53.0) Mean Corpuscular Volume 83fL (79-100) 83fL (79-100) Mean Corpuscular Hemoglobin 27pg (25-35) 27pg (25-35) Mean Corpuscular Hemoglobin Concent 33g/dL (31-37) 33g/dL (31-37) Red Cell Distribution Width 15.7% (11.5-14.5) 15.3% (11.5-14.5) Platelet Count 194x10^3/uL (140-400) 173x10^3/uL (140-400) Neutrophils (%) (Auto) 65% (31-73) 53% (31-73) Lymphocytes (%) (Auto) 24% (24-48) 35% (24-48) Monocytes (%) (Auto) 7% (0-9) 8% (0-9) Eosinophils (%) (Auto) 3% (0-3) 3% (0-3) Basophils (%) (Auto) 1% (0-3) 1% (0-3) Neutrophils # (Auto) 4.8x10^3uL (1.8-7.7) 3.6x10^3uL (1.8-7.7) Lymphocytes # (Auto) 1.8x10^3/uL (1.0-4.8) 2.4x10^3/uL (1.0-4.8) Monocytes # (Auto) 0.5x10^3/uL (0.0-1.1) 0.6x10^3/uL (0.0-1.1) Eosinophils # (Auto) 0.2x10^3/uL (0.0-0.7) 0.2x10^3/uL (0.0-0.7) Basophils # (Auto) 0.1x10^3/uL (0.0-0.2) 0.1x10^3/uL (0.0-0.2) Prothrombin Time 28.1SEC (11.7-14.0) Prothromb Time International Ratio 2.8 (0.8-1.1) D-Dimer (Lisa) 0.52ug/mlFEU (0.00-0.50) Sodium Level 141mmol/L (136-145) 143mmol/L (136-145) Potassium Level 4.1mmol/L (3.5-5.1) 4.0mmol/L (3.5-5.1) Chloride Level 104mmol/L (98-107) 108mmol/L (98-107) Carbon Dioxide Level 28mmol/L (21-32) 26mmol/L (21-32) Anion Gap 9 (6-14) 9 (6-14) Blood Urea Nitrogen 10mg/dL (8-26) 9mg/dL (8-26) Creatinine 1.1mg/dL (0.7-1.3) 1.0mg/dL (0.7-1.3) Estimated GFR (Cockcroft-Gault) 69.8 77.9 Glucose Level 115mg/dL (70-99) 83mg/dL (70-99) Calcium Level 9.3mg/dL (8.5-10.1) 8.7mg/dL (8.5-10.1) Magnesium Level 2.0mg/dL (1.8-2.4) 2.0mg/dL (1.8-2.4) Total Bilirubin 0.5mg/dL (0.2-1.0) Direct Bilirubin < 0.1mg/dL (0.0-0.2) Aspartate Amino Transf (AST/SGOT) 40U/L (15-37) Alanine Aminotransferase (ALT/SGPT) 98U/L (16-63) Alkaline Phosphatase 128U/L (46-116) Creatine Kinase 70U/L (39-308) Creatine Kinase MB (Mass) 0.8ng/mL (0.0-3.6) Creatine Kinase MB Relative Index 1.1% (0-4) Troponin I Quantitative < 0.017ng/mL (0.000-0.055) < 0.017ng/mL (0.000-0.055) BG-Uhb-I-Type Natriuretic Peptide 513pg/mL (0-124) Total Protein 7.9g/dL (6.4-8.2) Albumin 3.9g/dL (3.4-5.0) Thyroid Stimulating Hormone (TSH) 4.106uIU/mL (0.358-3.74) Free Thyroxine 1.36ng/dL (0.76-1.46) Laboratory Tests Test 05/10/16 14:02 05/10/16 21:45 05/11/16 03:35 White Blood Count 7.4x10^3/uL (4.0-11.0) 6.9x10^3/uL (4.0-11.0) Red Blood Count 5.24x10^6/uL (4.30-5.70) 4.60x10^6/uL (4.30-5.70) Hemoglobin 14.3g/dL (13.0-17.5) 12.6g/dL (13.0-17.5) Hematocrit 43.4% (39.0-53.0) 38.2% (39.0-53.0) Mean Corpuscular Volume 83fL (79-100) 83fL (79-100) Mean Corpuscular Hemoglobin 27pg (25-35) 27pg (25-35) Mean Corpuscular Hemoglobin Concent 33g/dL (31-37) 33g/dL (31-37) Red Cell Distribution Width 15.7% (11.5-14.5) 15.3% (11.5-14.5) Platelet Count 194x10^3/uL (140-400) 173x10^3/uL (140-400) Neutrophils (%) (Auto) 65% (31-73) 53% (31-73) Lymphocytes (%) (Auto) 24% (24-48) 35% (24-48) Monocytes (%) (Auto) 7% (0-9) 8% (0-9) Eosinophils (%) (Auto) 3% (0-3) 3% (0-3) Basophils (%) (Auto) 1% (0-3) 1% (0-3) Neutrophils # (Auto) 4.8x10^3uL (1.8-7.7) 3.6x10^3uL (1.8-7.7) Lymphocytes # (Auto) 1.8x10^3/uL (1.0-4.8) 2.4x10^3/uL (1.0-4.8) Monocytes # (Auto) 0.5x10^3/uL (0.0-1.1) 0.6x10^3/uL (0.0-1.1) Eosinophils # (Auto) 0.2x10^3/uL (0.0-0.7) 0.2x10^3/uL (0.0-0.7) Basophils # (Auto) 0.1x10^3/uL (0.0-0.2) 0.1x10^3/uL (0.0-0.2) Prothrombin Time 28.1SEC (11.7-14.0) Prothromb Time International Ratio 2.8 (0.8-1.1) D-Dimer (Lisa) 0.52ug/mlFEU (0.00-0.50) Sodium Level 141mmol/L (136-145) 143mmol/L (136-145) Potassium Level 4.1mmol/L (3.5-5.1) 4.0mmol/L (3.5-5.1) Chloride Level 104mmol/L (98-107) 108mmol/L (98-107) Carbon Dioxide Level 28mmol/L (21-32) 26mmol/L (21-32) Anion Gap 9 (6-14) 9 (6-14) Blood Urea Nitrogen 10mg/dL (8-26) 9mg/dL (8-26) Creatinine 1.1mg/dL (0.7-1.3) 1.0mg/dL (0.7-1.3) Estimated GFR (Cockcroft-Gault) 69.8 77.9 Glucose Level 115mg/dL (70-99) 83mg/dL (70-99) Calcium Level 9.3mg/dL (8.5-10.1) 8.7mg/dL (8.5-10.1) Magnesium Level 2.0mg/dL (1.8-2.4) 2.0mg/dL (1.8-2.4) Total Bilirubin 0.5mg/dL (0.2-1.0) Direct Bilirubin < 0.1mg/dL (0.0-0.2) Aspartate Amino Transf (AST/SGOT) 40U/L (15-37) Alanine Aminotransferase (ALT/SGPT) 98U/L (16-63) Alkaline Phosphatase 128U/L (46-116) Creatine Kinase 70U/L (39-308) Creatine Kinase MB (Mass) 0.8ng/mL (0.0-3.6) Creatine Kinase MB Relative Index 1.1% (0-4) Troponin I Quantitative < 0.017ng/mL (0.000-0.055) < 0.017ng/mL (0.000-0.055) XS-Mdj-L-Type Natriuretic Peptide 513pg/mL (0-124) Total Protein 7.9g/dL (6.4-8.2) Albumin 3.9g/dL (3.4-5.0) Thyroid Stimulating Hormone (TSH) 4.106uIU/mL (0.358-3.74) Free Thyroxine 1.36ng/dL (0.76-1.46) Medications Current Medications Sodium Chloride (Iv Sodium Chloride 0.9% 1000ml Bag) 1,000 ml @ 1,000 mls/hr Q1H IV Last administered on 05/10/16 14:40; Start 05/10/16 at 14:28; Stop at 15:27; Status DC Diltiazem HCl 20 mg 20 mg 1X ONCE IVP Last administered on 05/10/16 15:48; Start 05/10/16 at 15:30; Stop 05/10/16 at 15:31; Status DC Diltiazem HCl/ Dextrose (Cardizem) 125 ml @ 0 mls/hr CONT PRN IV SEE I/O RECORD Last administered on 05/11/16 00:03; Start 05/10/16 at 15:45 Acetaminophen (Tylenol) 650 mg PRN Q6HRS PRN PO FEVER; Start 05/10/16 at 17:30 Ondansetron HCl (Zofran) 4 mg PRN Q6HRS PRN IV NAUSEA/VOMITING; Start 05/10/16 at 17:30 Aspirin (Children'S Aspirin) 81 mg DAILYWBKFT PO Last administered on 05/11/16 09:10; Start 05/11/16 at 08:00 Rivaroxaban (Xarelto) 20 mg DAILYWSUP PO ; Start 05/10/16 at 18:00 Colchicine (Colcrys) 0.6 mg BID PO ; Start 05/11/16 at 09:00; Stop 05/11/16 at 09: 11; Status DC Colchicine (Colcrys) 0.6 mg 1X ONCE PO Last administered on 05/10/16 22:18; Start 05/10/16 at 22:15; Stop 05/10/16 at 22:16; Status DC Atorvastatin Calcium (Lipitor) 40 mg QHS PO ; Start 05/11/16 at 21:00 Atorvastatin Calcium (Lipitor) 40 mg 1X ONCE PO Last administered on 05/10/16 22:18; Start 05/10/16 at 22:15; Stop 05/10/16 at 22:16; Status DC Zolpidem Tartrate (Ambien) 5 mg PRN QHS PRN PO INSOMNIA; Start 05/10/16 at 22:15 Lisinopril (Prinivil) 20 mg DAILY PO Last administered on 05/11/16 09:10; Start 05/11/16 at 09:00 Aspirin (Children'S Aspirin) 81 mg DAILY PO ; Start 05/12/16 at 09:00; Stop at 09:00; Status DC Non-Formulary Medication 1 mg HS PO ; Start 05/11/16 at 21:00; Status UNV Non-Formulary Medication 20 mg DAILY PO ; Start 05/12/16 at 09:00; Stop 05/12/16 at 09:00; Status DC Diltiazem HCl (Cardizem 24hr Cd) 180 mg DAILY PO Last administered on 05/11/16 10:32; Start 05/11/16 at 10:30 Active Scripts Active Reported Metoprolol Succinate 50 Mg Tab.er.24h 50 Mg PO DAILY Amiodarone Hcl 200 Mg Tablet 200 Mg PO DAILY Cardizem Cd (Diltiazem Hcl) 180 Mg Cap.er.24h 180 Mg PO DAILY Melatonin 1 Mg Tablet 1 Mg PO HS Atorvastatin Calcium 40 Mg Tablet 40 Mg PO HS Altace (Ramipril) 10 Mg Capsule 10 Mg PO DAILY Aspirin 81 Mg Tab.chew 81 Mg PO DAILY Xarelto (Rivaroxaban) 20 Mg Tablet 20 Mg PO DAILY Colchicine 0.6 Mg Tablet 0.6 Mg PO BID Vitals/I & O Vital Sign - Last 24 Hours 05/10/16 05/10/16 05/10/16 05/10/16 13:56 14:30 15:00 15:30 Temp 98.3 98.3 Pulse 117 110 122 138 Resp 22 17 23 B/P 163/84 128/83 143/89 177/102 Pulse Ox 98 95 96 98 O2 Delivery Room Air Room Air Room Air Room Air 05/10/16 05/10/16 05/10/16 05/10/16 15:48 16:00 16:30 17:00 Pulse 133 122 107 108 Resp 20 21 20 B/P 138/94 133/88 103/79 102/72 Pulse Ox 96 95 95 O2 Delivery Room Air Room Air Room Air 05/10/16 05/10/16 05/10/16 05/10/16 17:30 19:07 19:49 20:00 Temp 98.4 98.4 98.4 98.4 Pulse 99 110 90 Resp 18 16 B/P 132/74 118/77 98/65 Pulse Ox 95 98 96 O2 Delivery Room Air Room Air Room Air Room Air 05/10/16 05/10/16 05/11/16 05/11/16 20:00 22:45 02:00 02:35 Temp 97.8 97.8 Pulse 90 62 50 52 Resp 16 B/P 98/65 95/56 95/54 100/61 Pulse Ox 95 O2 Delivery Room Air Room Air 05/11/16 05/11/16 05/11/16 05/11/16 03:00 03:00 04:00 04:27 Pulse 50 60 58 57 B/P 85/45 112/54 112/54 113/63 05/11/16 05/11/16 05/11/16 05/11/16 05:00 07:44 08:00 09:10 Temp 98.5 98.5 Pulse 56 54 65 Resp 14 B/P 97/60 119/65 138/79 Pulse Ox 97 O2 Delivery Room Air Room Air 05/11/16 10:32 Pulse 65 B/P 107/59 Intake and Output 05/10/16 05/10/16 05/11/16 14:59 22:59 06:59 Intake Total 1000 ml 1050 ml Output Total 150 ml 200 ml Balance 850 ml 850 ml FAUZIA AMADO MD May 11, 2016 11:45
[2016-05-11] MEDS ORDERED: AMIODARONE HCL 200 MG TABLET. PO SCH (12:00)
[2016-05-11] MEDS ORDERED: METOPROLOL SUCC 24HR ER 25 MG TAB.ER.24H. PO SCH (12:00)
--- NOTE | 2016-05-11 13:37 | CARD ---
APPROVED REPORT EXAM: Two-dimensional and M-mode echocardiogram with Doppler and color Doppler. Other Information Quality : GoodHR: 64bpm Rhythm : NSR INDICATION Atrial Fibrillation Surgery/Intervention CABD DIMENSIONS RVDd2.3 (2.9-3.5cm)Left Atrium(2D)3.8 (1.6-4.0cm) IVSd1.1 (0.7-1.1cm)Aortic Root(2D)3.0 (2.0-3.7cm) LVDd4.5 (3.9-5.9cm)LVOT Diameter2.2 (1.8-2.4cm) PWd1.1 (0.7-1.1cm)LVDs2.7 (2.5-4.0cm) FS (%) 39.3 %SV65.1 ml LVEF(%)70.0 (>50%) Aortic Valve AoV Peak Hector.96.1cm/sAoV VTI16.5cm AO Peak GR.3.7mmHgLVOT Peak Hector.92.8cm/s AO Mean GR.2mmHgAVA (VMAX)3.65cm2 AI P 1/2 [id number] Mitral Valve MV E Whbjbdob14.7cm/sMV DECEL RATH044fm MV A Velocity0.6cm/sE/A Opnpz875.8 MV A [id number] Tricuspid Valve TR P. Uljzqvvg230rw/sTR Peak Gr.20mmHg Pulmonary Vein S1 Vteejpqc04.9cm/sD2 Bstcqqdu22.8cm/s PVa [id number] LEFT VENTRICLE The left ventricle is normal size. There is borderline concentric left ventricular hypertrophy. The l eft ventricular systolic function is normal and the ejection fraction is within normal range. The Eje ction Fraction is 55-60%. There is normal LV segmental wall motion. Transmitral Doppler flow pattern is Grade I-abnormal relaxation pattern. RIGHT VENTRICLE The right ventricle is normal size. There is normal right ventricular wall thickness. The right ventr icular systolic function is normal. ATRIA The left atrium size is normal. The right atrium size is normal. The interatrial septum is intact wit h no evidence for an atrial septal defect or patent foramen ovale as noted on 2-D or Doppler imaging. AORTIC VALVE The aortic valve is sclerotic. The aortic valve is trileaflet. Doppler and Color Flow revealed mild a ortic regurgitation. There is no significant aortic valvular stenosis. MITRAL VALVE Mitral annular calcification is mild. The mitral valve leaflets are thickened. There is no evidence o f mitral valve prolapse. There is no mitral valve stenosis. Doppler and Color Flow revealed trace nancy ral regurgitation. TRICUSPID VALVE Doppler and Color Flow revealed trace tricuspid regurgitation. The pulmonary artery systolic pressure is estimated at 22 mmHg. There is no pulmonary hypertension. PULMONIC VALVE Doppler and Color Flow revealed mild pulmonic valvular regurgitation. There is no pulmonic valvular s tenosis. GREAT VESSELS The aortic root is normal in size. The ascending aorta is normal in size. The IVC is normal in size a nd collapses >50% with inspiration. PERICARDIAL EFFUSION There is no evidence of significant pericardial effusion. Critical Notification Critical Value: No <Conclusion> There is normal LV segmental wall motion. The left ventricular systolic function is normal and the ejection fraction is within normal range. Th e Ejection Fraction is 55-60%.
--- NOTE | 2016-05-11 15:16 | PDOC3 ---
Discharge Summary Visit Information Date of Admission: May 10, 2016 Date of Discharge: May 11, 2016 Admitting Diagnosis Comment: 1. rapid afib - started since CABG 5 weeks ago at [facility], cardioverted by chemical means 2. recent CAD with CABG 3. HTN 4. CHRONIC diarrhea since CABG/colcrys 5. GERD Final Diagnosis Problems Medical Problems: (1) Atrial fibrillation with rapid ventricular response Status: Acute (2) Diarrhea Status: Acute Brief Hospital Course Allergies Allergies Coded Allergies Type Severity Reaction Last Updated Verified No Known Drug Allergies 05/10/16 No Vital Signs Vital Signs Date Time Temp Pulse Resp B/P Pulse Ox O2 Delivery O2 Flow Rate FiO2 05/11/16 12:34 71 117/65 05/11/16 11:30 98.1 16 97 Room Air 98.1 Lab Results Laboratory Tests Test 05/10/16 14:02 05/10/16 21:45 05/11/16 03:35 White Blood Count 7.4x10^3/uL (4.0-11.0) 6.9x10^3/uL (4.0-11.0) Red Blood Count 5.24x10^6/uL (4.30-5.70) 4.60x10^6/uL (4.30-5.70) Hemoglobin 14.3g/dL (13.0-17.5) 12.6g/dL (13.0-17.5) Hematocrit 43.4% (39.0-53.0) 38.2% (39.0-53.0) Mean Corpuscular Volume 83fL (79-100) 83fL (79-100) Mean Corpuscular Hemoglobin 27pg (25-35) 27pg (25-35) Mean Corpuscular Hemoglobin Concent 33g/dL (31-37) 33g/dL (31-37) Red Cell Distribution Width 15.7% (11.5-14.5) 15.3% (11.5-14.5) Platelet Count 194x10^3/uL (140-400) 173x10^3/uL (140-400) Neutrophils (%) (Auto) 65% (31-73) 53% (31-73) Lymphocytes (%) (Auto) 24% (24-48) 35% (24-48) Monocytes (%) (Auto) 7% (0-9) 8% (0-9) Eosinophils (%) (Auto) 3% (0-3) 3% (0-3) Basophils (%) (Auto) 1% (0-3) 1% (0-3) Neutrophils # (Auto) 4.8x10^3uL (1.8-7.7) 3.6x10^3uL (1.8-7.7) Lymphocytes # (Auto) 1.8x10^3/uL (1.0-4.8) 2.4x10^3/uL (1.0-4.8) Monocytes # (Auto) 0.5x10^3/uL (0.0-1.1) 0.6x10^3/uL (0.0-1.1) Eosinophils # (Auto) 0.2x10^3/uL (0.0-0.7) 0.2x10^3/uL (0.0-0.7) Basophils # (Auto) 0.1x10^3/uL (0.0-0.2) 0.1x10^3/uL (0.0-0.2) Prothrombin Time 28.1SEC (11.7-14.0) Prothromb Time International Ratio 2.8 (0.8-1.1) D-Dimer (Lisa) 0.52ug/mlFEU (0.00-0.50) Sodium Level 141mmol/L (136-145) 143mmol/L (136-145) Potassium Level 4.1mmol/L (3.5-5.1) 4.0mmol/L (3.5-5.1) Chloride Level 104mmol/L (98-107) 108mmol/L (98-107) Carbon Dioxide Level 28mmol/L (21-32) 26mmol/L (21-32) Anion Gap 9 (6-14) 9 (6-14) Blood Urea Nitrogen 10mg/dL (8-26) 9mg/dL (8-26) Creatinine 1.1mg/dL (0.7-1.3) 1.0mg/dL (0.7-1.3) Estimated GFR (Cockcroft-Gault) 69.8 77.9 Glucose Level 115mg/dL (70-99) 83mg/dL (70-99) Calcium Level 9.3mg/dL (8.5-10.1) 8.7mg/dL (8.5-10.1) Magnesium Level 2.0mg/dL (1.8-2.4) 2.0mg/dL (1.8-2.4) Total Bilirubin 0.5mg/dL (0.2-1.0) Direct Bilirubin < 0.1mg/dL (0.0-0.2) Aspartate Amino Transf (AST/SGOT) 40U/L (15-37) Alanine Aminotransferase (ALT/SGPT) 98U/L (16-63) Alkaline Phosphatase 128U/L (46-116) Creatine Kinase 70U/L (39-308) Creatine Kinase MB (Mass) 0.8ng/mL (0.0-3.6) Creatine Kinase MB Relative Index 1.1% (0-4) Troponin I Quantitative < 0.017ng/mL (0.000-0.055) < 0.017ng/mL (0.000-0.055) HO-Dyr-H-Type Natriuretic Peptide 513pg/mL (0-124) Total Protein 7.9g/dL (6.4-8.2) Albumin 3.9g/dL (3.4-5.0) Thyroid Stimulating Hormone (TSH) 4.106uIU/mL (0.358-3.74) Free Thyroxine 1.36ng/dL (0.76-1.46) Laboratory Tests Test 05/10/16 21:45 05/11/16 03:35 Troponin I Quantitative < 0.017ng/mL (0.000-0.055) White Blood Count 6.9x10^3/uL (4.0-11.0) Red Blood Count 4.60x10^6/uL (4.30-5.70) Hemoglobin 12.6g/dL (13.0-17.5) Hematocrit 38.2% (39.0-53.0) Mean Corpuscular Volume 83fL (79-100) Mean Corpuscular Hemoglobin 27pg (25-35) Mean Corpuscular Hemoglobin Concent 33g/dL (31-37) Red Cell Distribution Width 15.3% (11.5-14.5) Platelet Count 173x10^3/uL (140-400) Neutrophils (%) (Auto) 53% (31-73) Lymphocytes (%) (Auto) 35% (24-48) Monocytes (%) (Auto) 8% (0-9) Eosinophils (%) (Auto) 3% (0-3) Basophils (%) (Auto) 1% (0-3) Neutrophils # (Auto) 3.6x10^3uL (1.8-7.7) Lymphocytes # (Auto) 2.4x10^3/uL (1.0-4.8) Monocytes # (Auto) 0.6x10^3/uL (0.0-1.1) Eosinophils # (Auto) 0.2x10^3/uL (0.0-0.7) Basophils # (Auto) 0.1x10^3/uL (0.0-0.2) Sodium Level 143mmol/L (136-145) Potassium Level 4.0mmol/L (3.5-5.1) Chloride Level 108mmol/L (98-107) Carbon Dioxide Level 26mmol/L (21-32) Anion Gap 9 (6-14) Blood Urea Nitrogen 9mg/dL (8-26) Creatinine 1.0mg/dL (0.7-1.3) Estimated GFR (Cockcroft-Gault) 77.9 Glucose Level 83mg/dL (70-99) Calcium Level 8.7mg/dL (8.5-10.1) Magnesium Level 2.0mg/dL (1.8-2.4) Free Thyroxine 1.36ng/dL (0.76-1.46) Brief Hospital Course Mr. Hawk is a 55 old male admitted for rapid afib while having cardiac rehab here. Hx of atrial fib started post CABG 5 weeks ago at [facility], CLeared by cards to go home, HAving some diarrhea since started on colcrys at [facility] 5 weeks ago for "preventive for pericardits". I have stooped colcrys, NO change in cardiac meds Dw pt and RN 2 notes today Pt seen and examined Dc 31 mins > 50% education and counseling, Discharge Information Condition at Discharge: Improved, Stable Disposition/Orders: D/C to Home Scheduled Amiodarone Hcl (Amiodarone Hcl) 200 MG PO DAILY (Reported) Aspirin (Aspirin) 81 MG PO DAILY (Reported) Atorvastatin Calcium (Atorvastatin Calcium) 40 MG PO HS (Reported) Colchicine (Colchicine) 0.6 MG PO BID (Reported) Diltiazem Hcl (Cardizem Cd) 180 MG PO DAILY (Reported) Melatonin (Melatonin) 1 MG PO HS (Reported) Metoprolol Succinate (Metoprolol Succinate) 50 MG PO DAILY (Reported) Ramipril (Altace) 10 MG PO DAILY (Reported) Rivaroxaban (Xarelto) 20 MG PO DAILY (Reported) FAUZIA AMADO MD May 11, 2016 15:16
[2016-05-11] MEDS: RIVAROXABAN 10 MG TABLET. PO SCH (16:28)
[2016-05-11] MEDS ORDERED: ATORVASTATIN CALCIUM 40 MG TABLET. PO SCH (21:00)
[2016-05-11] MEDS ORDERED: MELATONIN 1 MG PO SCH (21:00)
[2016-05-12] MEDS ORDERED: ASPIRIN CHEWABLE 81 MG TABLET. PO SCH (09:00)
[2016-05-12] MEDS ORDERED: NON FORMULARY ITEM (Rivaroxaban (Xarelto) 20 MG) PO SCH (09:00)
== END 2016-05-11 16:30 | disposition home or self-care (01) | DRG 310 ==
LOC: ER 13:37 → 2 NORTH 15:30
PROVIDERS: ADMIT Internal Medicine; ATTEND Internal Medicine
DX: I48.0 Paroxysmal atrial fibrillation (principal); E78.5 Hyperlipidemia, unspecified; I10 Essential (primary) hypertension; I25.10 Atherosclerotic heart disease of native coronary artery without angina pectoris; K21.9 Gastro-esophageal reflux disease without esophagitis; K52.9 Noninfective gastroenteritis and colitis, unspecified; M10.9 Gout, unspecified; Z79.01 Long term (current) use of anticoagulants; Z79.82 Long term (current) use of aspirin; Z82.49 Family history of ischemic heart disease and other diseases of the circulatory system; Z95.1 Presence of aortocoronary bypass graft
CPT/HCPCS: 36415; 71010; 80048; 80076; 82553; 83735; 83880; 84439; 84443; 84484; 85027; 85379; 85610; 87324; 93005; 93306; 96361; 96374; J3490; J7030; 99291-25

== ENCOUNTER → 2016-07-04 | Outpatient (CLI) | payer BC ==
[2016-05-11 15:00] VITALS: BP 110/59
[~2016-07-04] MED LIST: AMIO200T2 PO; ASPI-630 PO; ATOR40TA59 PO; COLC0.6T42 PO; DILT180C2 PO; MELA1TAB9 PO; METO50TA10 PO; RAMI10CA34 PO; RIVA20TA2 PO
== END | disposition home or self-care (01) ==
LOC: PCVCIMAG 11:22
PROVIDERS: ATTEND Internal Medicine Cardiovascular Disease
DX: E78.00 Pure hypercholesterolemia, unspecified (principal); I48.91 Unspecified atrial fibrillation; Z95.1 Presence of aortocoronary bypass graft
CPT/HCPCS: 80061; 93325; 93351